=== PATIENT | male | born 1975 | race Caucasian/White ===

== ENCOUNTER 2017-05-15 17:12 | Emergency (ER) | payer BC ==
[2017-05-15] MEDS ORDERED: Lidocaine 1% MPF* 2 ML VIAL INJ ONE (18:56)
[2017-05-15 19:43] VITALS: BP 156/110
--- NOTE | 2017-05-15 20:15 | UC ---
Shannon Nunes Alfonso, scribed for Felix Jain MD on 05/15/17 at 1901 . Minor Trauma HPI - HPI Summary HPI Summary: This patient is a 42 year old M presenting to [facility] with a chief complaint of left thumb trauma that occurred earlier today. Pt reports he smashed the base of my thumb with a hammer. The CC is described as an ache. Pt rates the pain 2/ 10 in severity. Symptoms aggravated and alleviated by nothing. Pt reports laceration. Pt denies worry of broken bone. Patient medications reviewed this visit. - History of Current Complaint Chief Complaint: UCUpperExtremity Stated Complaint: HAND INJURY Time Seen by Provider: 05/15/17 18:51 Hx Obtained From: Patient Onset/Duration: Sudden Onset, Lasting Hours - Earlier today Onset Of Pain: Prior To Arrival Severity Initially: Moderate Severity Currently: Moderate Pain Intensity: 2 Pain Scale Used: 0-10 Numeric Mechanism Of Injury: Blunt Trauma - Hammer Aggravating Factor(s): Nothing Alleviating Factor(s): Nothing Associated Signs And Symptoms: Positive: Other: - Laceration - Allergies/Home Medications Allergies/Adverse Reactions: Allergies Allergy/AdvReac Type Severity Reaction Status Date / Time No Known Allergies Allergy Verified 07/12/15 18:37 Home Medications: Home Medications Aspirin [Aspirin Childrens 81 MG] 81 mg PO 05/15/17 [History] Hydrochlorothiazide [Microzide-] 12.5 mg PO DAILY 05/15/17 [History Confirmed ] Lovastatin (NF) [Mevacor (NF)] 10 mg PO 1700 05/15/17 [History Confirmed ] Naproxen Sodium [Naproxen Sodium 220 mg] 440 mg PO 05/15/17 [History] PMH/Surg Hx/FS Hx/Imm Hx - Surgical History Surgical History: None - Family History Known Family History: Positive: Cardiac Disease, Diabetes, Other - Cancer - Social History Alcohol Use: Occasionally Alcohol Amount: 6-9 BEERS/WEEK Substance Use Type: None Smoking Status (MU): Never Smoked Tobacco Review of Systems Constitutional: Other - Negative fever Skin: Other - Positive laceration Musculoskeletal: Other: - Positive left thumb trauma All Other Systems Reviewed And Are Negative: Yes Physical Exam Triage Information Reviewed: Yes Appearance: Well-Appearing, No Pain Distress Vital Signs: Initial Vital Signs Temp 98.3 F 05/15/17 17:23 Pulse 84 05/15/17 17:23 Resp 18 05/15/17 17:23 BP 145/99 05/15/17 17:23 Pulse Ox 100 05/15/17 17:23 Vital Signs Reviewed: Yes Eyes: Positive: Other: - EOMI and LACI ENT: Positive: Normal ENT inspection Neck: Positive: Supple, Nontender Respiratory: Positive: Chest non-tender, Lungs clear, Normal breath sounds Cardiovascular: Positive: RRR Abdomen Description: Positive: Nontender, No Organomegaly Bowel Sounds: Positive: Present Musculoskeletal: Positive: Strength Intact, ROM Intact Neurological: Positive: Alert Psychological: Positive: Age Appropriate Behavior Skin: Positive: Other - Left hand proximal thumb 1 cm full thickness curved laceration. Procedures - Laceration/Wound Repair 1 Location: Other - LUE proximal thumb Anesthesia: 1.0% - Plain, Lido Length, Depth and Shape: 1 cm full thickness curved laceration. Irrigated w/ Saline (ccs): 40 - hibiclens Laceration/Wound Explored: contaminated, no foreign body removed Suture Type: Nylon - 5-0 Monosof Number of Sutures: 3 Layer Closure?: No Sterile Dressing Applied?: Yes Minor Trauma Course/Dx - Course Course Of Treatment: PATIENT REPORTS HIS TD IS UTD. - Differential Dx/Diagnosis Provider Diagnoses: LEFT HAND LACERATION Discharge - Discharge Plan Condition: Stable Disposition: HOME Patient Education Materials: Care For Your Stitches (ED), Laceration (ED) Referrals: Yung Tracy MD [Primary Care Provider] - Additional Instructions: FOLLOW UP WITH YOUR DOCTOR. SUTURES OUT IN 8-10 DAYS. GET RECHECKED FOR ANY WORSENING OF YOUR CONDITION; SIGNS OF INFECTION OR QUESTIONS OR CONCERNS. The documentation as recorded by the Shannon akins Alfonso accurately reflects the service I personally performed and the decisions made by me, Felix Jain MD.
== END 2017-05-15 19:38 | disposition home or self-care (01) ==
LOC: UCEAST 17:12
DX: S61.012A Laceration without foreign body of left thumb without damage to nail, initial encounter (principal); W27.8XXA Contact with other nonpowered hand tool, initial encounter
CPT/HCPCS: 12001; 99211; G0463

== ENCOUNTER 2017-05-16 09:08 | Emergency (ER) | payer BC ==
[2017-05-16 09:54] VITALS: BP 142/92
--- NOTE | 2017-05-16 10:17 | UC ---
malick Nunes Timothy, scribed for Bryce Wilkes MD on 05/16/17 at 1003 . HPI Wound/Suture Re-check - HPI Summary HPI Summary: Gregory Jacinto is a 42 yo male presenting to [facility] for a suture recheck of sutures in his left hand. Pt was seen 05/15/17 and states that last night one of the sutures popped out. He originally needed the sutures due to hitting his hand wit kee hammer against a pry bar. He now c/o 2/10 dull discomfort to left hand in the area of the same. His pain increases with movement of the left thumb. His MHx includes HTN, HLD, epilepsy, EtOH use. . - History Of Current Complaint Chief Complaint: UCLaceration Stated Complaint: STITCH RECHECK Time Seen by Provider: 05/16/17 10:03 Hx Obtained From: Patient Onset/Duration: Sudden Onset, Lasting Hours, Still Present Surgical Site: LUE hand Severity: Moderate Pain Intensity: 2 Pain Scale Used: 0-10 Numeric Procedure Type: suture - Allergies/Home Medications Allergies/Adverse Reactions: Allergies Allergy/AdvReac Type Severity Reaction Status Date / Time No Known Allergies Allergy Verified 05/16/17 09:45 PMH/Surg Hx/FS Hx/Imm Hx Cardiovascular History: Hypertension, Other Other Cardiovascular History: HLD Neurological History: Other Other Neurological History: epilepsy - Surgical History Surgical History: None - Family History Known Family History: Positive: Cardiac Disease, Diabetes, Other - Cancer - Social History 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 Alcohol Use: Occasionally Alcohol Amount: 6-9 BEERS/WEEK Substance Use Type: None Smoking Status (MU): Never Smoked Tobacco Review of Systems Constitutional: Negative Skin: Other - suture in LUE hand popped out Eyes: Negative ENT: Negative Respiratory: Negative Cardiovascular: Negative Gastrointestinal: Negative Genitourinary: Negative Motor: Negative Neurovascular: Negative Musculoskeletal: Negative Neurological: Negative Psychological: Negative All Other Systems Reviewed And Are Negative: Yes Physical Exam Triage Information Reviewed: Yes Vital Signs: Initial Vital Signs Temp 97.4 F 05/16/17 09:40 Pulse 76 05/16/17 09:40 Resp 14 05/16/17 09:40 BP 142/92 05/16/17 09:40 Pulse Ox 98 05/16/17 09:40 Vital Signs Reviewed: Yes ENT: Positive: Normal ENT inspection Respiratory: Positive: No respiratory distress, No accessory muscle use Cardiovascular: Positive: Pulses Normal, Brisk Capillary Refill Musculoskeletal: Positive: Strength Intact, ROM Intact Neurological: Positive: Alert, Muscle Tone Normal Skin: Positive: Other - left hand with three sutures intact. He has devitalized superficial epithelium that is white in color and pulled away from the closed wound. However good granulation tissue and dermis is closed. There is no wound dehisence. No drainage, no pus. Course/Dx - Course Course Of Treatment: Gregory Jacinto is a 42 yo male presenting to [facility] with a suture in his left hand which popped out last night. Pt medication list reviewed this visit. After clinical examination, he will be discharged home with appropriate instructions and follow up. Questions posed by Pt answered to best of ability. - Differential Dx - Laceration/Wound Differential Diagnoses: Healing Wound Provider Diagnoses: wound recheck Discharge - Discharge Plan Condition: Stable Disposition: HOME Patient Education Materials: Care For Your Stitches (ED) Referrals: Yung Tracy MD [Primary Care Provider] - 2 Days Additional Instructions: Please follow up with your primary care physician regarding your visit to urgent care today. Please keep your wound covered and apply antibiotic ointment up to twice a day for the next 8-9 days before having your sutures removed as discussed. Return to urgent care or the emergency department with any new or recurring symptoms. The documentation as recorded by the malick akins Timothy accurately reflects the service I personally performed and the decisions made by , Bryce Wilkes MD.
== END 2017-05-16 10:22 | disposition home or self-care (01) ==
LOC: UCEAST 09:08
DX: Z51.89 Encounter for other specified aftercare (principal); I10 Essential (primary) hypertension; G40.909 Epilepsy, unspecified, not intractable, without status epilepticus
CPT/HCPCS: 99212; G0463

== ENCOUNTER 2017-05-23 08:17 | Emergency (ER) | payer BC ==
[2017-05-23 08:34] VITALS: BP 130/80
--- NOTE | 2017-05-23 09:08 | UC ---
Skin Complaint HPI - HPI Summary HPI Summary: 42 y/o male presents to the urgent care for suture removal. Pt reports his stitches were placed 8 days ago here at the clinic after he injured his Rt hand with a hammer. He states his wound is healing well and he has been placing the topical antibiotic daily. Pt denies pain, fever, chest pain, SOB, N/V/D. Pt has not other complains. - History of Current Complaint Chief Complaint: UCSkin Time Seen by Provider: 05/23/17 08:41 Stated Complaint: SUTURE REMOVAL Hx Obtained From: Patient Onset/Duration: Gradual Onset, Lasting Days, Still Present Skin Exposure Onset/Duration: Days Ago Timing: Constant Onset Severity: Moderate Current Severity: Mild Pain Intensity: 0 Pain Scale Used: 0-10 Numeric Location: Hand (Right) - with stitched laceration Aggravating: Nothing Alleviating: OTC Meds Associated Signs & Symptoms: Positive: Negative Related History: Other: - laceration with a hammer - Allergy/Home Medications Allergies/Adverse Reactions: Allergies Allergy/AdvReac Type Severity Reaction Status Date / Time No Known Allergies Allergy Verified 05/23/17 08:33 Review of Systems Constitutional: Negative Skin: Other - RT hand laceration stitches placed 8 days ago Eyes: Negative ENT: Negative Respiratory: Negative Cardiovascular: Negative Gastrointestinal: Negative Genitourinary: Negative Motor: Negative Neurovascular: Negative Musculoskeletal: Negative Neurological: Negative Psychological: Negative All Other Systems Reviewed And Are Negative: Yes PMH/Surg Hx/FS Hx/Imm Hx Previously Healthy: Yes Endocrine History: Dyslipidemia Cardiovascular History: Hypertension Neurological History: Seizures - Surgical History Surgical History: None - Family History Known Family History: Positive: Cardiac Disease, Diabetes, Other - Cancer - Social History Occupation: Employed Full-time Lives: With Family Alcohol Use: Occasionally Alcohol Amount: 6-9 BEERS/WEEK Substance Use Type: None Smoking Status (MU): Never Smoked Tobacco Physical Exam Triage Information Reviewed: Yes Appearance: Well-Appearing, No Pain Distress, Well-Nourished, Thin Vital Signs: Initial Vital Signs Temp 97.8 F 05/23/17 08:27 Pulse 77 05/23/17 08:27 Resp 18 05/23/17 08:27 BP 130/80 05/23/17 08:27 Pulse Ox 98 05/23/17 08:27 Vital Signs Reviewed: Yes Eye Exam: Normal Eyes: Positive: Conjunctiva Clear - PERRLA, EOMI ENT Exam: Normal ENT: Positive: Normal ENT inspection, Hearing grossly normal, Pharynx normal, TMs normal Dental Exam: Normal Neck exam: Normal Neck: Positive: Supple, Nontender, No Lymphadenopathy Respiratory Exam: Normal Respiratory: Positive: Chest non-tender, Lungs clear, Normal breath sounds Cardiovascular Exam: Normal Cardiovascular: Positive: RRR, No Murmur, Pulses Normal Abdominal Exam: Normal Abdomen Description: Positive: Nontender, No Organomegaly, Soft Bowel Sounds: Positive: Present Musculoskeletal Exam: Normal Musculoskeletal: Positive: Strength Intact, ROM Intact, No Edema Neurological Exam: Normal Psychological Exam: Normal Skin: Positive: Other - RT hand with 3 stiches placed f/p laceration with a hammer. No erythema, swelling, or pus observed, non tender. 3 stitches removed w/o any difficulty. Pt tolerated well procedure. Course/Dx - Course Course Of Treatment: 42 y/o male presents to the urgent care for suture removal. Pt reports his stitches were placed 8 days ago here at the clinic after he injured his Rt hand with a hammer. He states his wound is healing well and he has been placing the topical antibiotic daily. Pt denies pain, fever, chest pain, SOB, N/V/D. Pt has not other complains.Hx obtained. PE abnormal findings: RT hand with 3 stiches placed f/p laceration with a hammer. No erythema, swelling, or pus observed, non tender. 3 stitches removed w/o any difficulty. Pt tolerated well procedure. wound cleaned and covered with sterile dressing. Pt advised to continue placing toipical bacitracin for the following 5 days, keep wound dry and clean. If signs of infection result to return to the clinic or f/u with PCP for further treatment. Pt understood and agreed. Left the clinic ambulating. - Differential Diagnoses - Skin Complaint Differential Diagnoses: Cellulitis, Eczema, Tick Born Illness, Urticaria, Other - suture removal - Diagnoses Provider Diagnoses: suture removal s/p laceration Discharge - Discharge Plan Condition: Stable Disposition: HOME Patient Education Materials: Stitches Removal (ED) Referrals: Yung Tracy MD [Primary Care Provider] - If Needed Additional Instructions: Please keep wound dry and continue applying topical antibiotic BID x 5 days. Id redness or swelling or signs of infection appears please return to the urgent care or f/u with your PCP for further evaluation and treatment.
== END 2017-05-23 09:04 | disposition home or self-care (01) ==
LOC: UCEAST 08:17
DX: Z48.02 Encounter for removal of sutures (principal); E78.5 Hyperlipidemia, unspecified; I10 Essential (primary) hypertension; R56.9 Unspecified convulsions
CPT/HCPCS: 99211; G0463